=== PATIENT | male | born 1945 | race Two or more races ===

== ENCOUNTER 2016-09-21 21:39 | Inpatient (IN) | payer MEDICAID, MEDICARE ==
[~2016-09-21] VITALS: Ht 172.7 cm; Wt 70.3 kg
[2016-09-21 22:13] LABS: BASOPHILS # (AUTO) 0.2 /CMM (0.0-0.2); BASOPHILS % (AUTO) 1.8 % (0.0-2.0); DIFF TOTAL % 100 %; EOSINOPHILS # (AUTO) 0.4 /CMM (0.0-0.7); EOSINOPHILS % (AUTO) 4.4 % (0.0-6.0); HEMATOCRIT 32 % (39-51); HEMOGLOBIN 10.7 g/dL (13.5-17.5); LYMPHOCYTES # (AUTO) 2.7 /CMM (0.8-4.8); LYMPHOCYTES % (AUTO) 29.7 % (20.0-44.0); MEAN CORPUSCULAR HEMOGLOBIN 32 PG (26.0-33.0); MEAN CORPUSCULAR HGB CONC 34 g/dl (31.0-36.0); MEAN CORPUSCULAR VOLUME 95 fL (80-96); MONOCYTES # (AUTO) 0.6 /CMM (0.1-1.30); MONOCYTES % (AUTO) 6.8 % (2.0-12.0); NEUTROPHILS # (AUTO) 5.1 /CMM (1.8-8.9); NEUTROPHILS % (AUTO) 57.3 % (43.0-81.0); PLATELET COUNT (AUTO) 133 /CMM (150-450); RED BLOOD CELL COUNT(AUTO) 3.33 MIL/uL (4.5-6.0); WHITE BLOOD COUNT (AUTO) 8.9 K/uL (4.3-11.0)
[2016-09-21 22:25] LABS: INR 0.97 (0.87-1.13); PROTHROMBIN TIME 10.5 SECS (9.5-12.7)
[2016-09-21 22:28] LABS: CARBON DIOXIDE 20 mmol/L (21-32); CHLORIDE 111 mmol/L (98-107); POTASSIUM 3.8 mmol/L (3.5-5.1); SODIUM SERUM 143 mmol/L (136-145)
[2016-09-21 22:29] LABS: ANION GAP 16 (5-14); CALCIUM, SERUM 6.9 mg/dL (8.5-10.1); UREA NITROGEN, BLOOD 74 mg/dL (7-18)
[2016-09-21 22:30] LABS: CREATININE 10.7 mg/dL (0.6-1.3); GLUCOSE 39 mg/dL (74-106)
[2016-09-21 22:36] LABS: ALANINE AMINOTRANSFERASE 20 U/L (12-78); ASPARTATE AMINOTRANSFERASE 28 U/L (15-37); BILIRUBIN,DIRECT 0.1 mg/dL (0.0-0.2); BILIRUBIN,TOTAL 0.3 mg/dL (0.2-1.0); INDIRECT BILIRUBIN 0.2 mg/dL (0.0-1.1)
[2016-09-21] MEDS ORDERED: DEXTROSE 50%-WATER 50 ML DISP.SYRIN ONE (22:36)
[2016-09-21 22:37] LABS: TOTAL PROTEIN, SERUM 6.2 g/dL (6.4-8.2)
[2016-09-21] MEDS ORDERED: DEXTROSE 50%-WATER 50 ML DISP.SYRIN IVP ONE (23:00)
[2016-09-21] MEDS ORDERED: IV NS 0.9% 1,000 ML BAG IV ONE (23:00)
[2016-09-21] MEDS ORDERED: IV SET PRIMARY 1 EA INFUS.SET MC ONE (23:25)
[2016-09-21] MEDS ORDERED: IV NS 0.9% 1,000 ML ONE (23:25)
[2016-09-21] MEDS ORDERED: IV SET PRIMARY PUMP SET 1 EA INFUS.SET MC ONE (23:31)
[2016-09-21] MEDS ORDERED: IV D5W 1,000 ML IV ONE ×2 (23:31→23:47)
[2016-09-21] MEDS ORDERED: ZOLP5TAB7 PO (23:38)
[2016-09-21] MEDS ORDERED: MELO-270 PO (23:38)
[2016-09-21] MEDS ORDERED: FURO20TA4 PO (23:38)
[2016-09-21] MEDS ORDERED: LORA10TA7 PO (23:38)
[2016-09-21] MEDS ORDERED: TAMS0.4C34 PO (23:38)
[2016-09-21 23:41] LABS: LACTIC ACID 1.5 mmol/L (0.4-2.0); TROPONIN I 0.033 ng/mL (0.00-0.056)
[2016-09-21 23:57] LABS: KETONES,URINE NEGATIVE (NEGATIVE); LEUKOCYTE ESTERASE ,URINE NEGATIVE (NEGATIVE); PH,URINE 6.5 (5.0-8.0)
[2016-09-22] VITALS (28 sets, daily range): BP systolic 109–182; BP diastolic 68–99
[2016-09-22 00:26] LABS: ADD UA MICROSCOPIC YES
[2016-09-22 00:28] LABS: ADD URINE CULTURE NO; WBC,URINE 0-2 /HPF (0-3)
[2016-09-22] MEDS ORDERED: Sodium Chloride 154 MEQ in IV 10% DEXTROSE 1,000 ML IV PRN (01:30)
[2016-09-22] MEDS ORDERED: IV 10% DEXTROSE 1,000 ML IV PRN ×3 (02:00→06:00)
[2016-09-22] MEDS ORDERED: ACETAMINOPHEN 325 MG TABLET PO PRN (02:30)
[2016-09-22] MEDS ORDERED: ONDANSETRON HCL/PF 4 MG/2 ML VIAL IVP PRN (02:30)
[2016-09-22] MEDS ORDERED: Z GUARD REMEDY 2 OZ OINT TP PRN (02:30)
[2016-09-22] MEDS ORDERED: MAGNESIUM HYDROXIDE 30 ML UDC PO PRN (02:30)
[2016-09-22] MEDS ORDERED: HYDROCODONE/APAP 5/325MG 1 EACH TABLET PO PRN (02:30)
[2016-09-22] MEDS ORDERED: ZOLPIDEM TARTRATE 5 MG TABLET PO PRN (02:30)
[2016-09-22] MEDS ORDERED: MAG HYDROX/AL HYDROX/SIMETH 30 ML UDC PO PRN (02:30)
[2016-09-22] MEDS ORDERED: BLOOD SUGAR DIAGNOSTIC 1 EACH STRIP IN SCH (02:30)
[2016-09-22] MEDS: BLOOD SUGAR DIAGNOSTIC 1 EACH STRIP IN SCH ×9 (04:01→22:05)
[2016-09-22 09:04] LABS: CALCIUM, SERUM 6.5 mg/dL (8.5-10.1); PHOSPHORUS 7.3 mg/dL (2.5-4.9); POTASSIUM 3.8 mmol/L (3.5-5.1)
[2016-09-22] MEDS: LORATADINE 10 MG TABLET PO SCH (09:09)
[2016-09-22] MEDS: FUROSEMIDE 20 MG TABLET PO SCH (09:09)
[2016-09-22] MEDS: TAMSULOSIN 0.4 MG CAP.SR.24H PO SCH (09:09)
[2016-09-22 09:32] LABS: CREATININE 10.4 mg/dL (0.6-1.3)
[2016-09-22] MEDS ORDERED: IV D5/ 0.9% NACL 1,000 ML IV PRN (11:30)
[2016-09-22] MEDS ORDERED: IV NS 0.9% 1,000 ML BAG IV PRN (17:00)
[2016-09-22] MEDS ORDERED: IV NS 0.9% 1,000 ML IV PRN (17:30)
[2016-09-22] MEDS ORDERED: ZOLPIDEM TARTRATE 5 MG TABLET PO SCH (18:00)
[2016-09-22] MEDS: ZOLPIDEM TARTRATE 5 MG TABLET PO SCH (22:05)
[2016-09-23] VITALS (17 sets, daily range): BP systolic 130–174; BP diastolic 73–92
[2016-09-23 04:58] LABS: BASOPHILS # (AUTO) 0.1 /CMM (0.0-0.2); BASOPHILS % (AUTO) 0.9 % (0.0-2.0); DIFF TOTAL % 100 %; EOSINOPHILS # (AUTO) 0.4 /CMM (0.0-0.7); EOSINOPHILS % (AUTO) 5.5 % (0.0-6.0); HEMATOCRIT 27 % (39-51); HEMOGLOBIN 8.8 g/dL (13.5-17.5); LYMPHOCYTES # (AUTO) 2.8 /CMM (0.8-4.8); LYMPHOCYTES % (AUTO) 40.3 % (20.0-44.0); MEAN CORPUSCULAR HEMOGLOBIN 32 PG (26.0-33.0); MEAN CORPUSCULAR HGB CONC 33 g/dl (31.0-36.0); MEAN CORPUSCULAR VOLUME 96 fL (80-96); MONOCYTES # (AUTO) 0.6 /CMM (0.1-1.30); NEUTROPHILS # (AUTO) 3.1 /CMM (1.8-8.9); NEUTROPHILS % (AUTO) 44.3 % (43.0-81.0); PLATELET COUNT (AUTO) 73 /CMM (150-450); RED BLOOD CELL COUNT(AUTO) 2.77 MIL/uL (4.5-6.0)
[2016-09-23 05:05] LABS: ANION GAP 18 (5-14); CALCIUM, SERUM 6.6 mg/dL (8.5-10.1); CARBON DIOXIDE 19 mmol/L (21-32); CHLORIDE 109 mmol/L (98-107); GLUCOSE 86 mg/dL (74-106); PHOSPHORUS 7.1 mg/dL (2.5-4.9); POTASSIUM 3.9 mmol/L (3.5-5.1); SODIUM SERUM 142 mmol/L (136-145); UREA NITROGEN, BLOOD 66 mg/dL (7-18)
[2016-09-23 05:06] LABS: CREATININE 9.2 mg/dL (0.6-1.3)
[2016-09-23 05:07] LABS: CHOLESTEROL 196 mg/dL (<200); HDL CHOLESTEROL 76 mg/dL (40-60); LDL 103 mg/dL (0-99); TRIGLYCERIDES 103 mg/dL (30-150)
[2016-09-23 05:18] LABS: EOSINOPHILS % (MANUAL) 7 % (0-4); LYMPHOCYTES % (MANUAL) 46 % (16-48)
[2016-09-23 05:19] LABS: PLATELET ESTIMATE DECREASED
[2016-09-23] MEDS: BLOOD SUGAR DIAGNOSTIC 1 EACH STRIP IN SCH ×4 (06:30→21:41)
[2016-09-23] MEDS: FUROSEMIDE 20 MG TABLET PO SCH (08:23)
[2016-09-23] MEDS: LORATADINE 10 MG TABLET PO SCH (08:23)
[2016-09-23] MEDS: TAMSULOSIN 0.4 MG CAP.SR.24H PO SCH (08:23)
[2016-09-23] MEDS ORDERED: IV SET PRIMARY PUMP SET 1 EA INFUS.SET MC ONE (10:37)
[2016-09-23] MEDS ORDERED: SECONDARY IV SET 1 EA INFUS.SET MC ONE (10:38)
[2016-09-23] MEDS ORDERED: IV NS 0.9% 250 ML IV ONE (10:38)
[2016-09-23] MEDS: Magnesium 1GM/D5W 100ML PREMIX 100 ML IV SCH ×4 (13:36→17:05)
[2016-09-23] MEDS: CALCIUM ACETATE 667 MG TABLET PO SCH ×2 (13:37→17:05)
[2016-09-23] MEDS: ZOLPIDEM TARTRATE 5 MG TABLET PO SCH (21:41)
[2016-09-24 04:00] VITALS: BP 138/76
[2016-09-24] MEDS: BLOOD SUGAR DIAGNOSTIC 1 EACH STRIP IN SCH ×4 (06:31→21:14)
[2016-09-24 06:54] LABS: BASOPHILS % (AUTO) 0.5 % (0.0-2.0); DIFF TOTAL % 100 %; EOSINOPHILS # (AUTO) 0.4 /CMM (0.0-0.7); EOSINOPHILS % (AUTO) 5.1 % (0.0-6.0); HEMATOCRIT 28 % (39-51); HEMOGLOBIN 9.7 g/dL (13.5-17.5); LYMPHOCYTES # (AUTO) 2.1 /CMM (0.8-4.8); LYMPHOCYTES % (AUTO) 26.9 % (20.0-44.0); MEAN CORPUSCULAR HEMOGLOBIN 32 PG (26.0-33.0); MEAN CORPUSCULAR HGB CONC 34 g/dl (31.0-36.0); MEAN CORPUSCULAR VOLUME 95 fL (80-96); MONOCYTES # (AUTO) 0.7 /CMM (0.1-1.30); MONOCYTES % (AUTO) 9.2 % (2.0-12.0); NEUTROPHILS # (AUTO) 4.7 /CMM (1.8-8.9); NEUTROPHILS % (AUTO) 58.3 % (43.0-81.0); RED BLOOD CELL COUNT(AUTO) 3.01 MIL/uL (4.5-6.0)
[2016-09-24 06:56] LABS: PLATELET COUNT (AUTO) 80 /CMM (150-450)
[2016-09-24 07:22] LABS: ANION GAP 16 (5-14); CALCIUM, SERUM 7.3 mg/dL (8.5-10.1); CARBON DIOXIDE 24 mmol/L (21-32); CHLORIDE 103 mmol/L (98-107); GLUCOSE 105 mg/dL (74-106); PHOSPHORUS 6.7 mg/dL (2.5-4.9); POTASSIUM 4.1 mmol/L (3.5-5.1); SODIUM SERUM 138 mmol/L (136-145); UREA NITROGEN, BLOOD 51 mg/dL (7-18)
[2016-09-24 07:34] LABS: CREATININE 7.5 mg/dL (0.6-1.3)
[2016-09-24 08:00] VITALS: BP 152/78
[2016-09-24 09:20] LABS: IRON, SERUM 62 ug/dl (50-175); PERCENT SATURATION 29 % (14-33); TOTAL IRON BINDING CAPACITY 211 ug/dl (250-450)
[2016-09-24 12:08] VITALS: BP 157/83
[2016-09-24] MEDS: FUROSEMIDE 20 MG TABLET PO SCH (12:50)
[2016-09-24] MEDS: TAMSULOSIN 0.4 MG CAP.SR.24H PO SCH (12:50)
[2016-09-24] MEDS: LORATADINE 10 MG TABLET PO SCH (12:50)
[2016-09-24] MEDS: CALCIUM ACETATE 667 MG TABLET PO SCH ×3 (12:50→18:22)
[2016-09-24] MEDS: VIT B CMPLX 3/FA/VIT C/BIOTIN 1 TAB TABLET PO SCH (12:50)
[2016-09-24 16:00] VITALS: BP 116/76
[2016-09-24 16:03] VITALS: BP 116/76
[2016-09-24 20:00] VITALS: BP_SYST 134; BP_SYST 138; BP_DIAS 76; BP_DIAS 84
[2016-09-24] MEDS: ZOLPIDEM TARTRATE 5 MG TABLET PO SCH (21:14)
[2016-09-25 04:00] VITALS: BP 132/77
[2016-09-25 07:09] LABS: BASOPHILS % (AUTO) 0.6 % (0.0-2.0); DIFF TOTAL % 100 %; EOSINOPHILS # (AUTO) 0.3 /CMM (0.0-0.7); EOSINOPHILS % (AUTO) 4.9 % (0.0-6.0); HEMATOCRIT 29 % (39-51); HEMOGLOBIN 9.8 g/dL (13.5-17.5); LYMPHOCYTES # (AUTO) 2.5 /CMM (0.8-4.8); LYMPHOCYTES % (AUTO) 35.2 % (20.0-44.0); MEAN CORPUSCULAR HEMOGLOBIN 33 PG (26.0-33.0); MEAN CORPUSCULAR HGB CONC 34 g/dl (31.0-36.0); MEAN CORPUSCULAR VOLUME 96 fL (80-96); MONOCYTES # (AUTO) 0.7 /CMM (0.1-1.30); MONOCYTES % (AUTO) 9.4 % (2.0-12.0); NEUTROPHILS # (AUTO) 3.5 /CMM (1.8-8.9); NEUTROPHILS % (AUTO) 49.9 % (43.0-81.0); PLATELET COUNT (AUTO) 75 /CMM (150-450); RED BLOOD CELL COUNT(AUTO) 3.01 MIL/uL (4.5-6.0)
[2016-09-25 07:21] LABS: CALCIUM, SERUM 7.7 mg/dL (8.5-10.1); CREATININE 6.8 mg/dL (0.6-1.3); POTASSIUM 3.9 mmol/L (3.5-5.1)
[2016-09-25] MEDS: BLOOD SUGAR DIAGNOSTIC 1 EACH STRIP IN SCH ×4 (07:30→21:46)
[2016-09-25 08:00] VITALS: BP 140/79
[2016-09-25 08:02] VITALS: BP 140/79
[2016-09-25] MEDS: FUROSEMIDE 20 MG TABLET PO SCH (08:13)
[2016-09-25] MEDS: TAMSULOSIN 0.4 MG CAP.SR.24H PO SCH (08:13)
[2016-09-25] MEDS: VIT B CMPLX 3/FA/VIT C/BIOTIN 1 TAB TABLET PO SCH (08:13)
[2016-09-25] MEDS: CALCIUM ACETATE 667 MG TABLET PO SCH ×3 (08:13→17:01)
[2016-09-25] MEDS: LORATADINE 10 MG TABLET PO SCH (08:13)
[2016-09-25 09:01] LABS: EOSINOPHILS % (MANUAL) 2 % (0-4); LYMPHOCYTES % (MANUAL) 29 % (16-48); PLATELET ESTIMATE DECREASED; RBC MORPHOLOGY COMMENT NORMAL RBC MORPH
[2016-09-25 15:58] VITALS: BP 155/81
[2016-09-25 16:00] VITALS: BP 155/81
[2016-09-25 20:00] VITALS: BP 123/78
[2016-09-25] MEDS: ZOLPIDEM TARTRATE 5 MG TABLET PO SCH (21:47)
[2016-09-26 02:19] LABS: HEPATITIS C VIRUS AB <0.1 s/co ratio (0.0-0.9)
[2016-09-26 04:00] VITALS: BP 144/83
[2016-09-26] MEDS: BLOOD SUGAR DIAGNOSTIC 1 EACH STRIP IN SCH ×4 (06:51→21:23)
[2016-09-26 08:00] VITALS: BP 146/78
[2016-09-26] MEDS: CALCIUM ACETATE 667 MG TABLET PO SCH ×3 (08:36→18:06)
[2016-09-26] MEDS: TAMSULOSIN 0.4 MG CAP.SR.24H PO SCH (08:36)
[2016-09-26] MEDS: FUROSEMIDE 20 MG TABLET PO SCH (08:36)
[2016-09-26] MEDS: VIT B CMPLX 3/FA/VIT C/BIOTIN 1 TAB TABLET PO SCH (08:36)
[2016-09-26] MEDS: LORATADINE 10 MG TABLET PO SCH (08:37)
[2016-09-26 16:00] VITALS: BP 164/76
[2016-09-26 20:00] VITALS: BP 167/85
[2016-09-26] MEDS: ZOLPIDEM TARTRATE 5 MG TABLET PO SCH (21:24)
[2016-09-27] VITALS: BP 135/79
[2016-09-27 04:00] VITALS: BP 131/75
[2016-09-27] MEDS: BLOOD SUGAR DIAGNOSTIC 1 EACH STRIP IN SCH ×2 (04:59→12:51)
[2016-09-27 08:00] VITALS: BP 129/76
[2016-09-27] MEDS: VIT B CMPLX 3/FA/VIT C/BIOTIN 1 TAB TABLET PO SCH (08:13)
[2016-09-27] MEDS: FUROSEMIDE 20 MG TABLET PO SCH (08:13)
[2016-09-27] MEDS: LORATADINE 10 MG TABLET PO SCH (08:13)
[2016-09-27] MEDS: CALCIUM ACETATE 667 MG TABLET PO SCH ×2 (08:13→12:51)
[2016-09-27] MEDS: TAMSULOSIN 0.4 MG CAP.SR.24H PO SCH (08:13)
[2016-09-27] MEDS ORDERED: IBUPROFEN 400 MG TABLET PO PRN (13:30)
== END 2016-09-27 15:23 | disposition home or self-care (01) | DRG 468 ==
LOC: ER 21:42 → TELE 23:53 → ICU 09-22 01:35 → TELE1 09-23 09:13 → MEDSG1 09-23 13:00
PROVIDERS: ADMIT Family Medicine; ATTEND Family Medicine
PROC: 5A1D60Z (ICD-10-PCS; principal; 2016-09-22)
DX: E11.22 Type 2 diabetes mellitus with diabetic chronic kidney disease (principal); I12.0 Hypertensive chronic kidney disease with stage 5 chronic kidney disease or end stage renal disease; N18.6 End stage renal disease; E11.649 Type 2 diabetes mellitus with hypoglycemia without coma; R53.1 Weakness; E83.39 Other disorders of phosphorus metabolism; Z99.2 Dependence on renal dialysis; N40.0 Benign prostatic hyperplasia without lower urinary tract symptoms; M19.90 Unspecified osteoarthritis, unspecified site; D63.8 Anemia in other chronic diseases classified elsewhere; E83.51 Hypocalcemia; M10.9 Gout, unspecified; Z91.19 Patient's noncompliance with other medical treatment and regimen; Z88.0 Allergy status to penicillin; E83.9 Disorder of mineral metabolism, unspecified
CPT/HCPCS: 36415; 70450-TC; 71010-TC; 80048-TC; 80061-TC; 80076-TC; 81000-TC; 82962-TC; 83540-TC; 83605-TC; 83735-TC; 84100-TC; 84484-TC; 85025-TC; 85730-TC; 86706; 86803; 87040-TC; 87081-TC; 87340; 90935-TC; A4606; A6402; J3475; J3490; J7030; J7042; J7050; J7070; Z7610

== ENCOUNTER 2017-10-14 10:07 | Emergency (ER) | payer MEDICARE, MEDICAID ==
[~2017-10-14] VITALS: Ht 162.6 cm; Wt 61.2 kg
[~2017-10-14 10:07] MED LIST: LORA10TA7 PO; TAMS0.4C34 PO; ZOLP5TAB8 PO
--- NOTE | 2017-10-14 11:00 | NUR ---
PT REC'D TO ER C/O HIGH BP DID TAKE HIS MEDS LABS DRAWN AND EKG DONE PER MD ORDER SPEAKS TURKS AND [place] TRANLATOR AT BEDSIDE
[2017-10-14 11:23] LABS: BASOPHILS % (AUTO) 0.5 % (0.0-2.0); EOSINOPHILS # (AUTO) 0.1 /CMM (0.0-0.7); EOSINOPHILS % (AUTO) 2.9 % (0.0-6.0); HEMATOCRIT 34 % (39-51); HEMOGLOBIN 11.5 g/dL (13.5-17.5); LYMPHOCYTES # (AUTO) 1.3 /CMM (0.8-4.8); LYMPHOCYTES % (AUTO) 29.5 % (20.0-44.0); MEAN CORPUSCULAR HEMOGLOBIN 34 PG (26.0-33.0); MEAN CORPUSCULAR HGB CONC 34 g/dl (31.0-36.0); MEAN CORPUSCULAR VOLUME 100 fL (80-96); MONOCYTES # (AUTO) 0.4 /CMM (0.1-1.30); MONOCYTES % (AUTO) 10.4 % (2.0-12.0); NEUTROPHILS # (AUTO) 2.4 /CMM (1.8-8.9); NEUTROPHILS % (AUTO) 56.7 % (43.0-81.0); PLATELET COUNT (AUTO) 103 /CMM (150-450); RDW COEFFICIENT OF VARIATION 12.6 (11.5-15.0); RED BLOOD CELL COUNT(AUTO) 3.43 MIL/uL (4.5-6.0); WHITE BLOOD COUNT (AUTO) 4.2 K/uL (4.3-11.0)
--- NOTE | 2017-10-14 11:30 | NUR ---
CHEST XRAY DONE
[2017-10-14 11:32] LABS: CARBON DIOXIDE 26 mmol/L (21-32); CHLORIDE 99 mmol/L (98-107); GLUCOSE 120 mg/dL (74-106); POTASSIUM 6.1 mmol/L (3.5-5.1); SODIUM SERUM 132 mmol/L (136-145); UREA NITROGEN, BLOOD 44 mg/dL (7-18)
[2017-10-14 11:51] LABS: TROPONIN I < 0.017 ng/mL (0.00-0.056)
--- NOTE | 2017-10-14 12:03 | NUR ---
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
[2017-10-14] MEDS ORDERED: SODIUM POLYSTYRENE SULFONATE 15 G/60 ML BOTTLE ONE (12:25)
[2017-10-14] MEDS ORDERED: hydrALAZINE HCL 10 MG TABLET PO ONE (12:30)
[2017-10-14] MEDS ORDERED: SODIUM POLYSTYRENE SULFONATE 15 G/60 ML BOTTLE PO ONE (12:30)
--- NOTE | 2017-10-14 12:37 | NUR ---
MEDS GIVEN PT. VERBALIZED UNDERSTANDING OF AFTERCARE INSTRUCTIONS.Patient discharged to home in stable condition. Written and verbal after care instructions given. Patient verbalizes understanding of instruction.
[2017-10-14 12:39] VITALS: BP 163/75
== END 2017-10-14 12:40 | disposition home or self-care (01) ==
LOC: ER 10:23
DX: E87.5 Hyperkalemia (principal); I12.0 Hypertensive chronic kidney disease with stage 5 chronic kidney disease or end stage renal disease; E11.22 Type 2 diabetes mellitus with diabetic chronic kidney disease; N18.6 End stage renal disease; Z99.2 Dependence on renal dialysis; Z88.0 Allergy status to penicillin; Z79.899 Other long term (current) drug therapy
CPT/HCPCS: 36415; 71045; 80048; 84484; 85025; 93005; 99291; A4606 ×2; Z7610